=== PATIENT | female | born 1970 | race Two or more races ===

== ENCOUNTER 2019-11-14 10:00 | Emergency (ER) | payer SELFPAY ==
[~2019-11-14] VITALS: Ht 167.6 cm; Wt 79.1 kg
[2019-11-14] MEDS ORDERED: ACETAMINOPHEN 500 MG TABLET ONE (10:27)
[2019-11-14] MEDS ORDERED: ACETAMINOPHEN 500 MG TABLET PO ONE (10:30)
[2019-11-14 11:09] LABS: MEAN CORPUSCULAR HEMOGLOBIN 30.6 pg (27.0-34.8); MEAN CORPUSCULAR HGB CONC 33.3 g/dL (32.4-35.8); MEAN CORPUSCULAR VOLUME 91.8 fL (80-100); MEAN PLATELET VOLUME 8.8 fL (7.4-10.4); PLATELET COUNT 160 x10^3/uL (130-400); RED BLOOD COUNT 5.04 x10^6/uL (3.82-5.3); RED CELL DISTRIBUTION WIDTH 13.3 % (9.6-15.2)
[2019-11-14 11:13] LABS: ANION GAP 8 mmol/L (5-15); CALCIUM 8.6 mg/dL (8.5-10.1); CHLORIDE 107 mmol/L (98-107); CREATININE 0.85 mg/dL (0.55-1.02)
[2019-11-14 11:14] LABS: ALBUMIN 3.6 g/dL (3.4-5.0)
[2019-11-14 11:24] LABS: MD YES
[2019-11-14 11:27] LABS: <PLATELET ESTIMATE> ADEQUATE; <PLT MORPHOLOGY> NORMAL PLT MORPH; <RBC MORPHOLOGY> NORMAL; BAND#(MANUAL) 0.35 x10^3/uL; BANDS%(MANUAL) 9 % (0-7); EOS#(MANUAL) 0.04 x10^3/uL (0.0-0.4); EOS% (MANUAL) 1 % (1-7); LYMPH#(MANUAL) 1.17 x10^3/uL (1-3.4); LYMPHS% (MANUAL) 30 % (22-44); MONOS#(MANUAL) 0.12 x10^3/uL (0.3-2.7); MONOS% (MANUAL) 3 % (2-9); SEG#(MANUAL) 2.22 x10^3/uL (1.8-6.8); SEGS% (MANUAL) 57 % (42-75)
--- NOTE | 2019-11-14 11:45 | NUR ---
PT HAS OCCASIONAL COUGH, NO SOB AND SPEAKING IN FULL SENTENCES
[2019-11-14 12:43] VITALS: BP 112/55
== END 2019-11-14 12:56 | disposition home or self-care (01) ==
LOC: ED 10:29
DX: U07.1 COVID-19 (principal); B34.9 Viral infection, unspecified; R06.02 Shortness of breath; Z11.59 Encounter for screening for other viral diseases
CPT/HCPCS: 36415; 71045; 80048; 82040; 83615; 85025; 93005; 99285